=== PATIENT | female | born 1955 | race Caucasian/White ===

== ENCOUNTER 2021-03-01 22:14 | Inpatient (IN) | payer OTHER ==
[2021-03-01 22:21] VITALS: BMI 25.0
[2021-03-01] MEDS ORDERED: AMPICILLIN NA/SULBACTAM NA 3 GM in SODIUM CHLORIDE 100 ML IVPB ONE (23:08)
[2021-03-01 23:37] LABS: BASO % 0.4 % (0-2.0); HEMATOCRIT 39.2 % (32.4-45.2); HEMOGLOBIN 13.4 GM/dL (10.7-15.3); LYMPH % 20.5 % (8-40); MCH 32.2 pg (25.7-33.7); MCHC 34.3 g/dl (32.0-36.0); MEAN CELL VOLUME 93.9 fl (80-96); MEAN PLT VOLUME 8.4 fl (7.5-11.1); MONO % 11.5 % (3.8-10.2); NEUT % 62.6 % (42.8-82.8); PLATELET COUNT 264 10^3/uL (134-434); RBC 4.17 M/mm3 (3.60-5.2); RDW 14.1 % (11.6-15.6)
[2021-03-01 23:59] LABS: CALCIUM 9.6 mg/dL (8.5-10.1)
[2021-03-02] LABS: BLOOD UREA NITROGEN 19.4 mg/dL (7-18)
[2021-03-02 00:03] LABS: CREATININE 0.7 mg/dL (0.55-1.3)
[2021-03-02 00:04] LABS: BILIRUBIN,TOTAL 0.2 mg/dL (0.2-1)
[2021-03-02 00:05] LABS: TOT PROT 7.9 g/dl (6.4-8.2)
[2021-03-02] MEDS ORDERED: ACETAMINOPHEN 325 MG TABLET (FP) PO PRN (01:29)
[2021-03-02] MEDS ORDERED: PIPERACILLIN/TAZOB 3.375 GM 3.375 GM/50 ML BAG IVPB ONE (02:04)
[2021-03-02] MEDS: PIPERACILLIN/TAZOB 3.375 GM 3.375 GM in DEXTROSE 5%-WATER - 50 ML IVPB SCH ×2 (02:19→10:25)
[2021-03-02] MEDS ORDERED: DEXTROSE 5%-WATER - 50 ML IVPB ONE (10:09)
[2021-03-02] MEDS ORDERED: PIPERACILLIN/TAZOBACTAM 3.375 GM VIAL IVPB ONE (10:09)
[2021-03-02] MEDS: ENOXAPARIN NA (PORCINE) 40 MG/0.4 ML DISP.SYRIN SQ SCH (10:37)
[2021-03-02 12:41] LABS: BASO % 0.5 % (0-2.0); HEMATOCRIT 38.8 % (32.4-45.2); HEMOGLOBIN 12.9 GM/dL (10.7-15.3); LYMPH % 23.7 % (8-40); MCH 31.9 pg (25.7-33.7); MCHC 33.3 g/dl (32.0-36.0); MEAN CELL VOLUME 95.7 fl (80-96); MEAN PLT VOLUME 8.5 fl (7.5-11.1); NEUT % 59.8 % (42.8-82.8); PLATELET COUNT 249 10^3/uL (134-434); RBC 4.06 M/mm3 (3.60-5.2); RDW 14.4 % (11.6-15.6); WHITE BLOOD COUNT 7.7 K/mm3 (4.0-10.0)
[2021-03-02 12:51] LABS: CALCIUM 8.9 mg/dL (8.5-10.1)
[2021-03-02 12:52] LABS: ALBUMIN 3.5 g/dl (3.4-5.0); BLOOD UREA NITROGEN 22.5 mg/dL (7-18)
[2021-03-02 12:55] LABS: CREATININE 0.5 mg/dL (0.55-1.3)
[2021-03-02 12:57] LABS: BILIRUBIN,TOTAL 0.4 mg/dL (0.2-1); TOT PROT 6.8 g/dl (6.4-8.2)
[2021-03-02] MEDS: VANCOMYCIN 1 GRAM (PRE-DOCKED) 1,000 MG/250 ML BAG IVPB SCH (12:59)
[2021-03-02] MEDS ORDERED: SODIUM CHLORIDE 100 ML IVPB ONE (15:21)
[2021-03-02] MEDS ORDERED: AMPICILLIN NA/SULBACTAM NA 3 GM VIAL ONE ×2 (15:21→20:42)
[2021-03-02] MEDS: AMPICILLIN NA/SULBACTAM NA 3 GM in SODIUM CHLORIDE 100 ML IVPB SCH ×2 (16:08→21:27)
[2021-03-03] MEDS: VANCOMYCIN 1 GRAM (PRE-DOCKED) 1,000 MG/250 ML BAG IVPB SCH ×2 (01:08→14:33)
[2021-03-03] MEDS ORDERED: PIPERACILLIN/TAZOB 3.375 GM 3.375 GM in DEXTROSE 5%-WATER - 50 ML IVPB SCH (02:00)
[2021-03-03] MEDS ORDERED: AMPICILLIN NA/SULBACTAM NA 3 GM VIAL ONE ×4 (03:33→21:21)
[2021-03-03] MEDS ORDERED: SODIUM CHLORIDE 100 ML IVPB ONE ×4 (03:34→21:21)
[2021-03-03] MEDS: AMPICILLIN NA/SULBACTAM NA 3 GM in SODIUM CHLORIDE 100 ML IVPB SCH ×4 (03:51→21:24)
[2021-03-03 08:47] LABS: BASO % 0.6 % (0-2.0); EOS % 7.5 % (0-4.5); HEMATOCRIT 37.8 % (32.4-45.2); LYMPH % 28.9 % (8-40); MCH 32.3 pg (25.7-33.7); MCHC 34.3 g/dl (32.0-36.0); MEAN CELL VOLUME 94.1 fl (80-96); MEAN PLT VOLUME 8.2 fl (7.5-11.1); PLATELET COUNT 253 10^3/uL (134-434); RBC 4.02 M/mm3 (3.60-5.2); RDW 14.4 % (11.6-15.6)
[2021-03-03 09:10] LABS: CALCIUM 8.8 mg/dL (8.5-10.1)
[2021-03-03 09:11] LABS: ALBUMIN 3.1 g/dl (3.4-5.0); BLOOD UREA NITROGEN 19.2 mg/dL (7-18); MAGNESIUM 1.9 mg/dL (1.8-2.4)
[2021-03-03 09:14] LABS: CREATININE 0.6 mg/dL (0.55-1.3)
[2021-03-03 09:15] LABS: BILIRUBIN,TOTAL 0.4 mg/dL (0.2-1)
[2021-03-03 09:16] LABS: TOT PROT 6.5 g/dl (6.4-8.2)
[2021-03-03] MEDS: ENOXAPARIN NA (PORCINE) 40 MG/0.4 ML DISP.SYRIN SQ SCH (09:28)
[2021-03-03] MEDS: BACITRACIN 15 GM TUBE TOPICAL OINTMENT TP SCH ×2 (16:34→21:24)
[2021-03-03] MEDS ORDERED: PT OWN MED DRAWER 7, Y5N ONE ×2 (19:00→23:43)
[2021-03-04] MEDS: VANCOMYCIN 1 GRAM (PRE-DOCKED) 1,000 MG/250 ML BAG IVPB SCH (00:40)
[2021-03-04] MEDS ORDERED: AMPICILLIN NA/SULBACTAM NA 3 GM VIAL ONE ×2 (02:35→09:50)
[2021-03-04] MEDS ORDERED: SODIUM CHLORIDE 100 ML IVPB ONE ×2 (02:36→09:50)
[2021-03-04] MEDS: AMPICILLIN NA/SULBACTAM NA 3 GM in SODIUM CHLORIDE 100 ML IVPB SCH ×2 (03:17→09:57)
[2021-03-04 09:19] LABS: BASO % 0.7 % (0-2.0); EOS % 8.2 % (0-4.5); HEMATOCRIT 38.5 % (32.4-45.2); HEMOGLOBIN 12.9 GM/dL (10.7-15.3); LYMPH % 29.3 % (8-40); MCH 32.1 pg (25.7-33.7); MCHC 33.6 g/dl (32.0-36.0); MEAN CELL VOLUME 95.6 fl (80-96); MEAN PLT VOLUME 8.3 fl (7.5-11.1); MONO % 12.1 % (3.8-10.2); NEUT % 49.7 % (42.8-82.8); PLATELET COUNT 249 10^3/uL (134-434); RBC 4.02 M/mm3 (3.60-5.2); RDW 14.1 % (11.6-15.6)
[2021-03-04] MEDS: ENOXAPARIN NA (PORCINE) 40 MG/0.4 ML DISP.SYRIN SQ SCH (09:57)
[2021-03-04] MEDS: BACITRACIN 15 GM TUBE TOPICAL OINTMENT TP SCH (09:57)
[2021-03-04 10:00] LABS: ALBUMIN 3.2 g/dl (3.4-5.0); BLOOD UREA NITROGEN 16.6 mg/dL (7-18); CALCIUM 8.8 mg/dL (8.5-10.1); MAGNESIUM 2.1 mg/dL (1.8-2.4)
[2021-03-04 10:03] LABS: CREATININE 0.5 mg/dL (0.55-1.3)
[2021-03-04 10:05] LABS: BILIRUBIN,TOTAL 0.5 mg/dL (0.2-1); TOT PROT 6.6 g/dl (6.4-8.2)
[2021-03-04 11:05] VITALS: BP 126/71; PULSE 71; TEMP 98.1
[2021-03-04] MEDS ORDERED: AMOX TR/POT CLAV 875MG/125MG TABLETS (FP) PO SCH (17:30)
== END 2021-03-04 14:29 | disposition home or self-care (01) | DRG 384 ==
LOC: JER 22:14 → JERBED 03-02 00:53 → INTOOBSV 03-02 00:53 → J5S 03-02 02:33 → OBSVTOIN 03-03 13:54
PROVIDERS: ADMIT Hospitalist; ATTEND Nurse Practitioner Family
DX: S61.451A Open bite of right hand, initial encounter (principal); L03.113 Cellulitis of right upper limb; W54.0XXA Bitten by dog, initial encounter; Y92.098 Other place in other non-institutional residence as the place of occurrence of the external cause
CPT/HCPCS: 36415; 73130-TC-RT-FY; 80053; 83036; 83735; 85025; 87040; 93005; 93010; 99285-25; C9803; G0378; U0003; U0005